=== PATIENT | male | born 1995 | race Caucasian/White ===

== ENCOUNTER 2017-01-20 20:18 | Emergency (ER) | payer OTHER ==
[2017-01-20 20:34] VITALS: RESP 16
--- NOTE | 2017-01-20 21:40 | EDPHY ---
H & P Stated Complaint: Sore throat with head and ear pain Time Seen by Provider: 01/20/17 21:40 HPI/ROS: CHIEF COMPLAINT: Sore throat, mild headache HISTORY OF PRESENT ILLNESS: The patient presents to the ED with complaints of sore throat which has been present for the past 5 days. He has had a mild headache with the symptoms. The patient was seen at urgent care yesterday and noted to have exudate of pharyngitis. He had a negative rapid strep test. He was not started on antibiotics. The patient was told to return to the ED if he developed unilateral pain in his throat which occurred today. The patient denies any acute fever today. He does complain of a mild frontal headache. The patient denies numbness or weakness. The patient has been using ibuprofen for management of his symptoms. The patient denies additional acute complaints. REVIEW OF SYSTEMS: A comprehensive 10 point review of systems is otherwise negative aside from elements mentioned in the history of present illness. Source: Patient - Personal History Current Tetanus/Diphtheria Vaccine: Yes Current Tetanus Diphtheria and Acellular Pertussis (TDAP): Yes - Medical/Surgical History Hx Asthma: No Hx Chronic Respiratory Disease: No Hx Diabetes: No Hx Cardiac Disease: No Hx Renal Disease: No Hx Cirrhosis: No Hx Alcoholism: No Hx HIV/AIDS: No Hx Splenectomy or Spleen Trauma: No Other PMH: N/A - Social History Smoking Status: Never smoked - Physical Exam Exam: General Appearance: Alert, no distress Eyes: Pupils equal and round no pallor or injection ENT, Mouth: 1+ bilateral tonsillar swelling with exudative changes Respiratory: There are no retractions, lungs are clear to auscultation Cardiovascular: Regular rate and rhythm Gastrointestinal: Abdomen is soft and nontender, no masses, bowel sounds normal Neurological: A&O, normal motor function, normal sensory exam, normal cranial nerves Skin: Warm and dry, no rashes Musculoskeletal: Neck is supple nontender, no lymphadenopathy, negative Kernig and Brudzinski sign Extremities: symmetrical, full range of motion Constitutional: Initial Vital Signs Temperature (C) 37.2 C 01/20/17 20:31 Heart Rate 85 01/20/17 20:31 Respiratory Rate 16 01/20/17 20:31 Blood Pressure 145/80 H 01/20/17 20:31 O2 Sat (%) 97 01/20/17 20:31 O2 Delivery Mode Room Air Allergies/Adverse Reactions: No Known Allergies Allergy (Unverified 01/20/17 20:34) Home Medications: Medication Instructions Recorded Hydrocodone/APAP 5/325 [[place] 1 - 2 each PO Q6 PRN #20 tab 01/20/17 5/325] Penicillin V Potassium [Pen Vk] 500 mg PO TID #21 tab 01/20/17 Medical Decision Making ED Course/Re-evaluation: The patient presents to the emergency department with complaints of pharyngitis , done aphasia and mild headache. The patient has no clinical evidence of meningitis. He is afebrile with no nuchal rigidity. The patient is noted to be neurologically intact. The patient did receive a single dose of Decadron for mild pharyngitis. He will be started on antibiotics given exudative nature have his presentation today. The patient will be advised to continue to take ibuprofen. He is given a prescription for [place] for more severe pain. He will be started on penicillin VK Patient is advised to follow up with our on-call Ear Nose Throat physician for any unimproved symptoms. He is advised to return to the ED for markedly worsening symptoms. Differential Diagnosis: Differential diagnosis considered includes otitis, bacterial pharyngitis, viral syndrome, less likely meningitis and pneumonia Departure - Departure Disposition: Home, Routine, Self-Care Clinical Impression: Acute pharyngitis Condition: Good Instructions: Pharyngitis (ED) Additional Instructions: 1. Take Ibuprofen or Motrin 600 mg by mouth three times a day. 2. Please take penicillin as prescribed for your sore throat. 3. Please return to the ED for markedly worsening symptoms, high fever, neck stiffness or other concerns. 4. Please follow up with the Ear Nose Throat physician you have been referred to for any unimproved symptoms. 5. [place] as needed for severe pain. Referrals: Era Morales MD [Medical Doctor] - As per Instructions
[2017-01-20] MEDS ORDERED: DEXAMETHASONE 4 MG TAB PO ONE (21:46)
[2017-01-20] MEDS ORDERED: HYDROCOD/APAP 5/325 PREPACK#6 BTL TAKEHOME ONE (21:58)
[2017-01-20] MEDS ORDERED: PENICILLIN VK 500 MG TAB PO ONE (21:58)
[2017-01-20 22:21] VITALS: BP 127/74; PULSE 72; TEMP 98.8; O2SAT 95
== END 2017-01-20 22:20 | disposition home or self-care (01) ==
DX: J02.9 Acute pharyngitis, unspecified (principal)